=== PATIENT | male | born 1955 | race African-American/Black ===

== ENCOUNTER 2016-12-17 12:08 | Emergency (ER) | payer OTHER ==
[2016-12-17] MEDS ORDERED: Colchicine 0.6 MG TAB ONE ×2 (12:44→13:48)
[2016-12-17] MEDS ORDERED: Indomethacin 25 mg Capsule ONE (12:46)
[2016-12-17 13:04] LABS: #Basophils 0.1 thou/uL (0.0-0.2); #Eosinphils 0.1 thou/uL (0.0-0.7); #Lymphocytes 1.7 thou/uL (1.20-3.40); #Monocytes 0.6 thou/uL (0.11-0.59); #Neutrophils 3.9 thou/uL (1.40-6.50); %Basophils 1.1 % (0.0-1.0); %Eosinophils 1.6 % (0.0-10.0); %Lymphocytes 26.6 % (21.0-51.0); %Monocytes 9.4 % (0.0-10.0); %Neutrophils 61.2 % (42.0-75.0); Hemoglobin 13.9 g/dL (14.0-18.0); Mean Corpuscular HGB CONC 33.6 g/dL (32.0-36.0); Mean Corpuscular Hemoglobin 30.5 pg (27.0-31.0); Mean Corpuscular Volume 90.7 fl (80.0-94.0); Mean Platelet Volume 8.6 fL (7.4-10.4); Platelet Count 199 thou/uL (130-400); RBC Distribution Width 12.6 % (11.5-14.5); Red Blood Cell (RBC) Count 4.57 mill/uL (4.70-6.10); White Blood Cell (WBC) Count 6.4 thou/uL (4.8-10.8)
[2016-12-17 13:45] LABS: Anion Gap 14 mmol/L (10-20); BUN (Urea Nitrogen) 22 mg/dL (8.4-25.7); Calc. Creatinine Clearance 0 mL/min (70-130); Calcium 9.4 mg/dL (7.8-10.44); Carbon Dioxide 29 mmol/L (23-31); Chloride 101 mmol/L (98-107); Estimated GFR-MDRD 75; Glucose 93 mg/dL (80-115); Potassium 3.7 mmol/L (3.5-5.1); Sodium 140 mmol/L (136-145); Uric Acid 10.8 mg/dL (3.5-7.2)
== END 2016-12-17 13:55 | disposition home or self-care (01) ==
LOC: MADERS 12:08
DX: M10.9 Gout, unspecified (principal); E78.5 Hyperlipidemia, unspecified; I10 Essential (primary) hypertension; Z79.899 Other long term (current) drug therapy
CPT/HCPCS: 36415; 80048; 84550; 85025; 99283

== ENCOUNTER 2017-04-05 09:58 | Emergency (ER) | payer OTHER, SELFPAY ==
--- NOTE | 2017-04-05 11:53 | RAD ---
PORTABLE CHEST 1 VIEW: Date: 04/05/17 Time: 1125 hours HISTORY: Dyspnea. FINDINGS: Comparison made with exam of 05/13/15. The heart size is normal. No confluent areas of consolidation, pneumothorax, [place] pulmonary edema, or pleural effusions are seen. Degenerative changes are seen in the spine. IMPRESSION: No radiographic evidence of acute cardiopulmonary process. POS: [facility]
[2017-04-05 12:40] LABS: #Eosinphils 0.1 thou/uL (0.0-0.7); #Lymphocytes 1.8 thou/uL (1.20-3.40); #Monocytes 0.5 thou/uL (0.11-0.59); #Neutrophils 3.5 thou/uL (1.40-6.50); %Basophils 0.8 % (0.0-1.0); %Eosinophils 1.8 % (0.0-10.0); %Lymphocytes 29.6 % (21.0-51.0); %Monocytes 8.9 % (0.0-10.0); %Neutrophils 58.9 % (42.0-75.0); Mean Corpuscular HGB CONC 30.9 g/dL (32.0-36.0); Mean Corpuscular Hemoglobin 28.9 pg (27.0-31.0); Mean Corpuscular Volume 93.5 fl (80.0-94.0); Mean Platelet Volume 7.5 fL (7.4-10.4); Platelet Count 177 thou/uL (130-400); RBC Distribution Width 13.3 % (11.5-14.5); Red Blood Cell (RBC) Count 4.13 mill/uL (4.70-6.10)
[2017-04-05 12:50] LABS: INR-International Normal Ratio 1.1; PTT 30.8 SEC (22.9-36.1); Prothrombin Time 14.6 SEC (12.0-14.7)
[2017-04-05 13:01] LABS: ALT (SGPT) 20 U/L (8-55); AST (SGOT) 17 U/L (5-34); Albumin 3.9 g/dL (3.4-4.8); Alkaline Phosphatase 55 U/L (40-150); Anion Gap 13 mmol/L (10-20); BUN (Urea Nitrogen) 21 mg/dL (8.4-25.7); Bilirubin, Total 0.7 mg/dL (0.2-1.2); Calc. Creatinine Clearance 0 mL/min (70-130); Calcium 8.5 mg/dL (7.8-10.44); Carbon Dioxide 28 mmol/L (23-31); Chloride 105 mmol/L (98-107); Estimated GFR-MDRD 61; Globulin 3.4 g/dL (2.4-3.5); Glucose 97 mg/dL (80-115); Potassium 3.6 mmol/L (3.5-5.1); Protein, Total 7.3 g/dL (5.8-8.1); Sodium 142 mmol/L (136-145)
[2017-04-05 13:03] LABS: Troponin I Less than 0.010 ng/mL (< 0.028)
== END 2017-04-05 14:05 | disposition home or self-care (01) ==
LOC: MADERS 09:58
DX: R53.83 Other fatigue (principal); R60.0 Localized edema; I10 Essential (primary) hypertension; Z91.14 Patient's other noncompliance with medication regimen; E78.5 Hyperlipidemia, unspecified; Z79.899 Other long term (current) drug therapy
CPT/HCPCS: 71010; 80053; 82553; 83880; 84443; 84484; 85025; 85610; 85730; 93005; 94760

== ENCOUNTER 2017-07-04 12:57 | Emergency (ER) | payer BC, SELFPAY | END 2017-07-04 14:50 | disposition home or self-care (01) | LOC: MADERS 12:57 | DX: R60.0 Localized edema (principal); E78.5 Hyperlipidemia, unspecified; I10 Essential (primary) hypertension; Z79.899 Other long term (current) drug therapy | CPT/HCPCS: 99283 ==

== ENCOUNTER 2017-09-12 21:40 | Emergency (ER) | payer BC ==
[2017-09-12] MEDS ORDERED: Ketorolac Tromethamine 60 MG/2 ML VIAL ONE (22:17)
--- NOTE | 2017-09-12 23:05 | RAD ---
THREE VIEW LEFT FOOT: Clinical history: Left foot pain. FINDINGS: Prominent osteoarthropathy of the left foot is present, centered predominately at the midfoot. No obv ious lisfranc dislocation. There are large enthesophytes at the plantar and dorsal aspect of the calc aneus. Mild generalized soft tissue prominence. Correlate clinically. IMPRESSION: Prominent arthropathy of the left foot. No obvious acute fracture. POS: [facility]
== END 2017-09-12 23:12 | disposition home or self-care (01) ==
LOC: MADERS 21:40
DX: M10.9 Gout, unspecified (principal); I10 Essential (primary) hypertension; Z79.899 Other long term (current) drug therapy; E78.5 Hyperlipidemia, unspecified
CPT/HCPCS: 96372; J1885

== ENCOUNTER 2018-01-07 03:48 | Emergency (ER) | payer BC ==
[2018-01-07] MEDS ORDERED: Indomethacin 25 mg Capsule ONE (04:15)
[2018-01-07] MEDS ORDERED: Colchicine 0.6 MG TAB ONE (04:15)
== END 2018-01-07 04:20 | disposition home or self-care (01) ==
LOC: MADERS 03:48
DX: M10.9 Gout, unspecified (principal); E78.5 Hyperlipidemia, unspecified; I10 Essential (primary) hypertension; M19.90 Unspecified osteoarthritis, unspecified site; Z79.899 Other long term (current) drug therapy
CPT/HCPCS: 99283

== ENCOUNTER 2018-12-25 11:41 | Emergency (ER) | payer BC ==
[2018-12-25] MEDS ORDERED: Indomethacin 25 mg Capsule ONE (12:15)
== END 2018-12-25 12:29 | disposition home or self-care (01) ==
LOC: MADERS 11:41
DX: M10.9 Gout, unspecified (principal); M19.90 Unspecified osteoarthritis, unspecified site; E78.5 Hyperlipidemia, unspecified; Z79.899 Other long term (current) drug therapy
CPT/HCPCS: 99283

== ENCOUNTER 2019-02-03 14:22 | Emergency (ER) | payer BC ==
[~2019-02-03 14:22] MED LIST: Sodium Chloride 0.9% 1,000 ML BAG ONE
[2019-02-03 15:26] LABS: #Basophils 0.1 thou/uL (0.0-0.2); #Eosinphils 0.2 thou/uL (0.0-0.7); #Lymphocytes 1.7 thou/uL (1.20-3.40); #Monocytes 0.7 thou/uL (0.11-0.59); #Neutrophils 5.3 thou/uL (1.40-6.50); %Basophils 0.9 % (0.0-1.0); %Eosinophils 2.1 % (0.0-10.0); %Lymphocytes 21.7 % (21.0-51.0); %Monocytes 8.7 % (0.0-10.0); %Neutrophils 66.7 % (42.0-75.0); Hemoglobin 11.5 g/dL (14.0-18.0); Mean Corpuscular HGB CONC 32.6 g/dL (32.0-36.0); Mean Corpuscular Hemoglobin 28.1 pg (27.0-31.0); Mean Corpuscular Volume 86.3 fL (78.0-98.0); Mean Platelet Volume 6.5 fL (7.4-10.4); Platelet Count 186 thou/uL (130-400); RBC Distribution Width 13.8 % (11.5-14.5); Red Blood Cell (RBC) Count 4.08 mill/uL (4.70-6.10); White Blood Cell (WBC) Count 7.9 thou/uL (4.8-10.8)
[2019-02-03 15:38] LABS: ALT (SGPT) 16 U/L (8-55); AST (SGOT) 17 U/L (5-34); Albumin 4.1 g/dL (3.4-4.8); Alkaline Phosphatase 82 U/L (40-150); Anion Gap 15 mmol/L (10-20); BUN (Urea Nitrogen) 50 mg/dL (8.4-25.7); Bilirubin, Total 0.8 mg/dL (0.2-1.2); Calc. Creatinine Clearance 0 mL/min (70-130); Calcium 8.6 mg/dL (7.8-10.44); Carbon Dioxide 25 mmol/L (23-31); Chloride 105 mmol/L (98-107); Estimated GFR-MDRD 30; Globulin 3.8 g/dL (2.4-3.5); Glucose 108 mg/dL (80-115); Potassium 3.9 mmol/L (3.5-5.1); Protein, Total 7.9 g/dL (5.8-8.1); Sodium 141 mmol/L (136-145)
--- NOTE | 2019-02-03 15:46 | RAD ---
PORTABLE CHEST: COMPARISON: 04/05/2017 study. HISTORY: Hypotension. FINDINGS: Heart size appears slightly enlarged. There are atherosclerotic changes of the aorta. The lungs are clear of infiltrates. There are no signs of failure. IMPRESSION: Cardiomegaly. POS: [facility]
== END 2019-02-03 16:44 | disposition home or self-care (01) ==
LOC: MADERS 14:22
DX: E86.0 Dehydration (principal); R19.7 Diarrhea, unspecified; E78.5 Hyperlipidemia, unspecified; I10 Essential (primary) hypertension; M10.9 Gout, unspecified; Z79.899 Other long term (current) drug therapy
CPT/HCPCS: 36415; 71045; 80053; 83605; 84484; 85025; 87040; 93005; 94760; 96360; J7050

== ENCOUNTER 2019-04-18 16:42 | Outpatient (CLI) | payer BC ==
--- NOTE | 2019-04-18 16:56 | RAD ---
EXAM: Chest 2 views: HISTORY: Dyspnea on exertion COMPARISON: 05/03/2015 FINDINGS: There is a normal-sized cardiomediastinal silhouette. There is no evidence of consolidation, mass, or pleural effusion. Degenerative changes are seen in the spine. IMPRESSION: No evidence of acute cardiopulmonary disease
== END 2019-04-18 16:43 | disposition home or self-care (01) ==
LOC: MADRAD 16:42
PROVIDERS: ATTEND Family Medicine
DX: R06.09 Other forms of dyspnea (principal)
CPT/HCPCS: 71046

== ENCOUNTER 2020-03-12 11:25 | Emergency (ER) | payer BC | END 2020-03-12 12:34 | disposition home or self-care (01) | LOC: MADERS 11:25 | DX: M10.9 Gout, unspecified (principal); M19.90 Unspecified osteoarthritis, unspecified site; E78.5 Hyperlipidemia, unspecified; I10 Essential (primary) hypertension; Z79.899 Other long term (current) drug therapy | CPT/HCPCS: 99283 ==

== ENCOUNTER 2020-05-07 13:57 | Outpatient (CLI) | payer BC ==
--- NOTE | 2020-05-07 14:57 | RAD ---
RIGHT HAND THREE VIEW: 05/07/20 HISTORY: Hand pain. COMPARISON: None. FINDINGS: There is advanced erosive degenerative changes of the thumb carpometacarpal joint. No acute fracture or malalignment. Capsular calcifications and periostitis of the second and third metacarpophalangeal joints. There is mild capsular calcifications of the middle finger and ring finger distal interphalangeal les nts. No acute fracture. IMPRESSION: Mild to moderate degenerative change. No acute osseous abnormality. POS: [facility]
== END 2020-05-07 13:58 | disposition home or self-care (01) ==
LOC: MADRAD 13:57
PROVIDERS: ATTEND Family Medicine
DX: M65.30 Trigger finger, unspecified finger (principal); M19.041 Primary osteoarthritis, right hand

== ENCOUNTER 2020-10-07 09:30 | Outpatient (CLI) | payer BC ==
[2020-10-07 10:25] LABS: ALT (SGPT) 19 U/L (8-55); AST (SGOT) 20 U/L (5-34); Albumin 4.4 g/dL (3.4-4.8); Alkaline Phosphatase 71 U/L (40-110); Anion Gap 12 mmol/L (10-20); BUN (Urea Nitrogen) 20 mg/dL (8.4-25.7); Calc. Creatinine Clearance 0 mL/min (70-130); Calcium 9.1 mg/dL (7.8-10.44); Carbon Dioxide 32 mmol/L (23-31); Cardiac Risk 3.9 (Less than 4.5); Chloride 102 mmol/L (98-107); Cholesterol 151 mg/dl (< 200 Desired); Globulin 3.7 g/dL (2.4-3.5); Glucose 118 mg/dL (80-115); HDL Cholesterol 39 mg/dL (>60 Neg Risk); LDL Cholesterol, Calculated 99 mg/dL; Potassium 4.3 mmol/L (3.5-5.1); Protein, Total 8.1 g/dL (5.8-8.1); Sodium 142 mmol/L (136-145); Triglycerides 65 mg/dL (Less than 150); Uric Acid 7.3 mg/dL (3.5-7.2)
[2020-10-07 16:58] LABS: Creatinine, Urine 20.85 mg/dL (63-166); Microalbumin Urine Less than 1.0 mg/dL (0.5-50.0)
[2020-10-07 17:00] LABS: Hemoglobin A1c 6.4 % (4.0-6.0)
== END 2020-10-07 09:31 | disposition home or self-care (01) ==
LOC: MADLAB 09:30
PROVIDERS: ATTEND Family Medicine
DX: E78.2 Mixed hyperlipidemia (principal); E79.0 Hyperuricemia without signs of inflammatory arthritis and tophaceous disease; E11.9 Type 2 diabetes mellitus without complications
CPT/HCPCS: 36415; 80053; 80061; 82043; 83036; 84550

== ENCOUNTER 2021-09-22 06:09 | Outpatient (CLI) | payer MEDICARE, BC ==
[2021-09-22 07:56] LABS: #Basophils 0.1 thou/uL (0.0-0.2); #Eosinphils 0.2 thou/uL (0.0-0.7); #Lymphocytes 2.2 thou/uL (1.20-3.40); #Monocytes 0.8 thou/uL (0.11-0.59); #Neutrophils 4.4 thou/uL (1.40-6.50); %Basophils 1.6 % (0.0-1.0); %Eosinophils 2.7 % (0.0-10.0); %Lymphocytes 28.3 % (21.0-51.0); %Monocytes 10.5 % (0.0-10.0); %Neutrophils 56.9 % (42.0-75.0); Hemoglobin 14.1 g/dL (14.0-18.0); Mean Corpuscular HGB CONC 30.7 g/dL (32.0-36.0); Mean Corpuscular Hemoglobin 28.1 pg (27.0-31.0); Mean Corpuscular Volume 91.8 fL (78.0-98.0); Mean Platelet Volume 6.8 fL (7.4-10.4); Platelet Count 209 thou/uL (130-400); Red Blood Cell (RBC) Count 5.02 mill/uL (4.70-6.10); White Blood Cell (WBC) Count 7.8 thou/uL (4.8-10.8)
[2021-09-22 08:03] LABS: ALT (SGPT) 18 U/L (8-55); AST (SGOT) 18 U/L (5-34); Albumin 4.2 g/dL (3.4-4.8); Alkaline Phosphatase 64 U/L (40-110); Anion Gap 12 mmol/L (10-20); BUN (Urea Nitrogen) 24 mg/dL (8.4-25.7); Bilirubin, Total 1.1 mg/dL (0.2-1.2); Calc. Creatinine Clearance 0 mL/min (70-130); Carbon Dioxide 32 mmol/L (23-31); Cardiac Risk 4.5 (Less than 4.5); Chloride 100 mmol/L (98-107); Cholesterol 165 mg/dl (< 200 Desired); Globulin 3.5 g/dL (2.4-3.5); Glucose 118 mg/dL (80-115); HDL Cholesterol 37 mg/dL (>60 Neg Risk); LDL Cholesterol, Calculated 108 mg/dL; Protein, Total 7.7 g/dL (5.8-8.1); Sodium 140 mmol/L (136-145); Triglycerides 101 mg/dL (Less than 150); Uric Acid 7.8 mg/dL (3.5-7.2)
[2021-09-22 11:48] LABS: Hemoglobin A1c 6.5 % (4.0-6.0)
[2021-09-22 11:53] LABS: Creatinine, Urine 270.6 mg/dL (63-166); Microalbumin Urine 3.1 mg/dL (0.5-50.0); Microalbumin/Creat Ratio 11.5 mg/g (Less than 30)
== END 2021-09-22 06:10 | disposition home or self-care (01) ==
LOC: MADLAB 06:09
PROVIDERS: ATTEND Family Medicine
DX: E78.2 Mixed hyperlipidemia (principal); E11.9 Type 2 diabetes mellitus without complications; D50.9 Iron deficiency anemia, unspecified; E79.0 Hyperuricemia without signs of inflammatory arthritis and tophaceous disease
CPT/HCPCS: 36415; 80053; 80061; 82043; 82728; 83036; 84550; 85025

== ENCOUNTER 2022-05-17 07:26 | Outpatient (CLI) | payer BC ==
[2022-05-17 08:42] LABS: ALT (SGPT) 17 U/L (8-55); AST (SGOT) 16 U/L (5-34); Albumin 4.1 g/dL (3.4-4.8); Alkaline Phosphatase 64 U/L (40-110); Anion Gap 14 mmol/L (10-20); BUN (Urea Nitrogen) 19 mg/dL (8.4-25.7); Bilirubin, Total 1.3 mg/dL (0.2-1.2); Calc. Creatinine Clearance 0 mL/min (70-130); Calcium 9.1 mg/dL (7.8-10.44); Carbon Dioxide 29 mmol/L (23-31); Chloride 103 mmol/L (98-107); Estimated GFR 67; Globulin 3.5 g/dL (2.4-3.5); Glucose 125 mg/dL (80-115); Hemoglobin 14.1 g/dL (14.0-18.0); Mean Corpuscular HGB CONC 31.2 g/dL (32.0-36.0); Mean Corpuscular Hemoglobin 29.4 pg (27.0-31.0); Mean Corpuscular Volume 94.2 fL (78.0-98.0); Mean Platelet Volume 8.3 fL (7.4-10.4); Platelet Count 203 thou/uL (130-400); Potassium 4.1 mmol/L (3.5-5.1); Protein, Total 7.6 g/dL (5.8-8.1); RBC Distribution Width 13.4 % (11.5-14.5); Red Blood Cell (RBC) Count 4.81 mill/uL (4.70-6.10); Sodium 142 mmol/L (136-145); Uric Acid 5.5 mg/dL (3.5-7.2); White Blood Cell (WBC) Count 5.8 thou/uL (4.8-10.8)
[2022-05-17 08:49] LABS: #Basophils 0.1 thou/uL (0.0-0.2); #Eosinphils 0.1 thou/uL (0.0-0.7); #Lymphocytes 1.7 thou/uL (1.20-3.40); #Monocytes 0.6 thou/uL (0.11-0.59); #Neutrophils 3.3 thou/uL (1.40-6.50); %Basophils 1.5 % (0.0-1.0); %Eosinophils 2.2 % (0.0-10.0); %Lymphocytes 29.8 % (21.0-51.0); %Monocytes 9.7 % (0.0-10.0); %Neutrophils 56.9 % (42.0-75.0)
[2022-05-17 12:27] LABS: Hemoglobin A1c 6.4 % (4.0-6.0)
[2022-05-19 15:25] LABS: Cardiac Risk 4.9 (Less than 4.5)
== END 2022-05-17 07:27 | disposition home or self-care (01) ==
LOC: MADLAB 07:26
PROVIDERS: ATTEND Family Medicine
DX: E11.9 Type 2 diabetes mellitus without complications (principal); D50.9 Iron deficiency anemia, unspecified; E79.0 Hyperuricemia without signs of inflammatory arthritis and tophaceous disease
CPT/HCPCS: 36415; 80053; 80061; 82728; 83036; 84550; 85025

== ENCOUNTER 2022-08-15 10:18 | Outpatient (CLI) | payer BC, MEDICARE ==
[2022-08-15 10:51] LABS: #Eosinphils 0.1 thou/uL (0.0-0.7); #Lymphocytes 1.7 thou/uL (1.20-3.40); #Monocytes 0.5 thou/uL (0.11-0.59); #Neutrophils 3.2 thou/uL (1.40-6.50); %Basophils 0.6 % (0.0-1.0); %Eosinophils 1.5 % (0.0-10.0); %Lymphocytes 31.1 % (21.0-51.0); %Monocytes 8.1 % (0.0-10.0); %Neutrophils 58.6 % (42.0-75.0); Mean Corpuscular HGB CONC 32.1 g/dL (32.0-36.0); Mean Corpuscular Hemoglobin 29.4 pg (27.0-31.0); Mean Corpuscular Volume 91.6 fl (78.0-98.0); Mean Platelet Volume 8.4 fL (7.4-10.4); Platelet Count 161 10x3/uL (130-400); RBC Distribution Width 13.1 % (11.5-14.5); Red Blood Cell (RBC) Count 4.74 mill/uL (4.70-6.10); White Blood Cell (WBC) Count 5.5 10x3/uL (4.8-10.8)
[2022-08-15 11:06] LABS: ALT (SGPT) 28 U/L (8-55); AST (SGOT) 17 U/L (5-34); Albumin 4.1 g/dL (3.4-4.8); Alkaline Phosphatase 69 U/L (40-110); Anion Gap 12 mmol/L (10-20); BUN (Urea Nitrogen) 19 mg/dL (8.4-25.7); Bilirubin, Total 1.7 mg/dL (0.2-1.2); Calc. Creatinine Clearance 0 mL/min (70-130); Calcium 9.3 mg/dL (7.8-10.44); Carbon Dioxide 30 mmol/L (23-31); Cardiac Risk 5.3 (Less than 4.5); Chloride 104 mmol/L (98-107); Cholesterol 192 mg/dl (< 200 Desired); Estimated GFR 65; Globulin 3.3 g/dL (2.4-3.5); Glucose 117 mg/dL (80-115); HDL Cholesterol 36 mg/dL (>60 Neg Risk); LDL Cholesterol, Calculated 142 mg/dL; Potassium 3.9 mmol/L (3.5-5.1); Protein, Total 7.4 g/dL (5.8-8.1); Sodium 142 mmol/L (136-145); Triglycerides 70 mg/dL (Less than 150)
[2022-08-16 12:10] LABS: Hemoglobin A1c 6.9 % (4.0-6.0)
== END 2022-08-15 10:19 | disposition home or self-care (01) ==
LOC: MADLAB 10:18
PROVIDERS: ATTEND Family Medicine
DX: E87.6 Hypokalemia (principal); E78.2 Mixed hyperlipidemia; D50.9 Iron deficiency anemia, unspecified; E11.9 Type 2 diabetes mellitus without complications
CPT/HCPCS: 36415; 80053; 80061; 83036; 85025

== ENCOUNTER 2024-08-02 08:10 | Emergency (ER) | payer BC | END 2024-08-02 09:11 | disposition home or self-care (01) | LOC: MADERS 08:10 | DX: J18.9 Pneumonia, unspecified organism (principal); R05.9 Cough, unspecified; I11.0 Hypertensive heart disease with heart failure; I50.9 Heart failure, unspecified; E78.5 Hyperlipidemia, unspecified; Z79.899 Other long term (current) drug therapy | CPT/HCPCS: 71046 ==

== ENCOUNTER 2025-05-24 07:51 | Outpatient (CLI) | payer BC ==
[2025-05-24 08:31] LABS: #Basophils 0.0 thou/uL (0.0-0.2); #Eosinophils 0.5 thou/uL (0.0-0.7); #Lymphocytes 1.4 thou/uL (1.20-3.40); #Monocytes 0.5 thou/uL (0.11-0.59); #Neutrophils 3.5 thou/uL (1.40-6.50); %Basophils 0.8 % (0.0-1.0); %Eosinophils 8.8 % (0.0-10.0); %Lymphocytes 23.5 % (21.0-51.0); %Monocytes 8.7 % (0.0-10.0); %Neutrophils 58.3 % (42.0-75.0); Hematocrit 47.6 % (42.0-52.0); Hemoglobin 14.3 g/dL (14.0-18.0); Mean Corpuscular Hemoglobin 28.7 pg (27.0-31.0); Mean Corpuscular Volume 95.3 fl (78.0-98.0); Platelet Count 178 10x3/uL (130-400); Red Blood Cell (RBC) Count 4.99 mill/uL (4.70-6.10); White Blood Cell (WBC) Count 6.0 10x3/uL (4.8-10.8)
[2025-05-24 08:48] LABS: ALT (SGPT) 17 U/L (Less than 45); AST (SGOT) 27 U/L (11-34); Albumin 4.2 g/dL (3.1-4.5); Alkaline Phosphatase 66 U/L (40-110); Anion Gap 15 mmol/L (10-20); BUN (Urea Nitrogen) 18 mg/dL (8.4-25.7); Bilirubin, Total 1.1 mg/dL (0.3-1.2); Calc. Creatinine Clearance 0 mL/min (70-130); Calcium 8.9 mg/dL (7.8-10.44); Carbon Dioxide 33 mmol/L (23-31); Chloride 99 mmol/L (98-107); Globulin 3.7 g/dL (2.4-3.5); Glucose 122 mg/dL (83-110); Potassium 3.9 mmol/L (3.5-5.1); Sodium 143 mmol/L (136-145)
== END 2025-05-24 07:52 | disposition home or self-care (01) ==
LOC: MADLAB 07:51
PROVIDERS: ATTEND Family Medicine
DX: E11.9 Type 2 diabetes mellitus without complications (principal); I10 Essential (primary) hypertension; D64.9 Anemia, unspecified
CPT/HCPCS: 36415; 80053; 83036; 85025